=== PATIENT | male | born 1950 | race Caucasian/White ===

== ENCOUNTER 2023-02-21 06:24 | Inpatient (IN) ==
[2023-02-14 13:08] LABS: Basophils # (Auto) 0.05 K/mcL (0.00-0.30); Basophils % (Auto) 0.7 % (0.0-2.0); Eosinophils # (Auto) 0.16 K/mcL (0.00-0.70); Eosinophils % (Auto) 2.2 % (0.0-7.0); Hematocrit 42.1 % (40.1-51.0); Hemoglobin 13.5 g/dL (13.7-17.5); Lymphocytes # (Auto) 1.75 K/mcL (1.50-4.80); Lymphocytes % (Auto) 24.5 % (15.5-49.0); Mean Corpuscular HGB Conc 32.1 g/dL (31.0-36.0); Mean Platelet Volume 11.6 fL (8.8-12.5); Monocytes # (Auto) 0.67 K/mcL (0.10-0.90); Monocytes % (Auto) 9.4 % (1.0-12.0); Neutrophils % (Auto) 62.2 % (38.0-78.0); Platelet Count 181 K/mcL (140-440); RBC 4.43 M/mcL (4.63-6.08); Red Cell Distribution Width 13.2 % (11.5-14.5); WBC 7.1 K/mcL (4.5-11.0)
[2023-02-14 13:22] LABS: INR 1.1 (0.9-1.1); Partial Thromboplastin Time 26.8 sec (20.0-37.0); Prothrombin Time 14.5 sec (11.9-14.5)
[2023-02-14 13:24] LABS: Appearance,Urine HAZY (Clear); Bilirubin,Urine Negative (Negative); Color,Urine YELLOW; Culture Indicated,Urine No; Glucose,Urine (UA) Negative (Negative); Ketones,Urine Negative (Negative); Leukocyte Esterase,Urine Negative /uL (Negative); Mucus,Urine FEW /hpf; Nitrate,Urine Negative (Negative); Protein,Urine 30 mg/dL (Negative); Specific Gravity,Urine 1.021 (1.000-1.035); Urine Blood Negative (Negative); Urine RBC 0 /hpf (0-3); Urine Squamous Epithelial Cell 0 /hpf (0-4); Urine WBC 1 /hpf (0-4); Urobilinogen,Urine Negative
[2023-02-14 13:33] LABS: Blood Urea Nitrogen 16 mg/dL (8-23); Calcium 9.7 mg/dL (8.6-10.4); Carbon Dioxide 26 mmol/L (22-30); Chloride 104 mmol/L (96-108); Glomerular Filtration Rate 39; Glucose 114 mg/dL (70-105)
[2023-02-14 14:25] LABS: Estimated Average Glucose(eAG) 131 mg/dL; Hemoglobin A1C 6.2 % Hgb (4.0-6.0)
[~2023-02-21 06:24] MED LIST: 0.9 % SODIUM CHLORIDE 9 ML, KETOROLAC 30 MG, ROPIVACAINE HCL/PF 49.5 ML, EPINEPHrine 0.... IJ SCH; ACETAMINOPHEN 500 MG TABLET PO SCH; CELECOXIB 200 MG CAPSULE PO SCH; PREGABALIN 75 MG CAPSULE PO SCH; ceFAZolin 3 GM in DEXTROSE 5% IN WATER 50 ML IV SCH; oxyCODONE 10 MG TAB.ER.12H PO SCH
[2023-02-21] MEDS ORDERED: PROPOFOL 200 MG/20 ML VIAL IV ONE (07:01)
[2023-02-21] MEDS ORDERED: fentaNYL 100 MCG/2 ML VIAL IV ONE (07:01)
[2023-02-21] MEDS ORDERED: TRANEXAMIC ACID 1,000 MG/10 ML VIAL ONE (07:02)
[2023-02-21] MEDS ORDERED: ROCURONIUM 10 MG/ML ML IV ONE ×2 (07:34→12:13)
[2023-02-21] MEDS ORDERED: ONDANSETRON 4 MG/2 ML VIAL IV ONE (08:15)
[2023-02-21] MEDS ORDERED: HYDROmorphone 1 MG/ML SYRINGE ONE (08:49)
[2023-02-21] MEDS ORDERED: IPRATROPIUM/ALBUTEROL 3 ML AMPUL.NEB NEB PRN ×2 (09:14→09:15)
[2023-02-21] MEDS ORDERED: HYDROmorphone 0.5 MG/0.5 ML SYRINGE IV PRN (09:15)
[2023-02-21] MEDS ORDERED: LACTATED RINGERS 1,000 ML IV SCH (09:15)
[2023-02-21] MEDS ORDERED: ONDANSETRON 4 MG/2 ML VIAL IV PRN ×2 (09:15→10:05)
[2023-02-21] MEDS ORDERED: fentaNYL 100 MCG/2 ML VIAL IV PRN (09:15)
[2023-02-21] MEDS ORDERED: LIDOCAINE 2% PF 5 ML VIAL ONE (09:21)
[2023-02-21] MEDS ORDERED: ROPIVACAINE HCL/PF 30 ML VIAL IJ ONE (09:21)
[2023-02-21] MEDS ORDERED: DEXAMETHASONE 10 MG/ML VIAL ONE (09:21)
[2023-02-21] MEDS ORDERED: SUGAMMADEX SODIUM 200 MG/2 ML VIAL IV ONE (10:02)
[2023-02-21] MEDS ORDERED: FLEETS ADULT ENEMA PR PRN (10:05)
[2023-02-21] MEDS ORDERED: BENZOCAINE/MENTHOL 1 LOZENGE PO PRN (10:05)
[2023-02-21] MEDS ORDERED: POLYETHYLENE GLYCOL 3350 17 GM PACKET PO PRN (10:05)
[2023-02-21] MEDS ORDERED: TEMAZEPAM 15 MG CAPSULE PO PRN (10:05)
[2023-02-21] MEDS ORDERED: MAGNESIUM HYDROXIDE 30 ML ORAL.SUSP PO PRN (10:05)
[2023-02-21] MEDS ORDERED: TRANEXAMIC ACID 1,000 MG/10 ML VIAL IV ONE (10:05)
[2023-02-21] MEDS ORDERED: BISACODYL 10 MG SUPP.RECT PR PRN (10:05)
[2023-02-21] MEDS ORDERED: 0.45 % SODIUM CHLORIDE 1,000 ML IV SCH (10:15)
[2023-02-21] MEDS ORDERED: KETOCONAZOLE 2% TOP CRM 15GM TUBE TOPICAL PRN (11:28)
[2023-02-21] MEDS ORDERED: ePHEDrine 50 MG/5 ML SYRINGE (ANEST) IV ONE (11:37)
[2023-02-21] MEDS ORDERED: NOREPINEPHRINE BITARTRATE 8 MG in 0.9 % SODIUM CHLORIDE 242 ML IV SCH (11:45)
[2023-02-21] MEDS ORDERED: 0.9 % SODIUM CHLORIDE 250 ML IV SCH (11:45)
[2023-02-21] MEDS ORDERED: ACETAMINOPHEN 325 MG TABLET PO PRN (12:00)
[2023-02-21] MEDS: 0.9 % SODIUM CHLORIDE 1,000 ML IV SCH (13:00)
[2023-02-21] MEDS ORDERED: DEXTROSE 50% 50 ML VIAL IV PRN (13:13)
[2023-02-21] MEDS ORDERED: DEXTROSE 31 GM ORAL.SUSP PO PRN (13:13)
[2023-02-21 13:31] LABS: Basophils # (Auto) 0.03 K/mcL (0.00-0.30); Basophils % (Auto) 0.2 % (0.0-2.0); Eosinophils # (Auto) 0.01 K/mcL (0.00-0.70); Eosinophils % (Auto) 0.1 % (0.0-7.0); Hematocrit 39.6 % (40.1-51.0); Hemoglobin 12.3 g/dL (13.7-17.5); Lymphocytes % (Auto) 5.4 % (15.5-49.0); Mean Cell Volume 101.8 fL (80.0-100.0); Mean Corpuscular HGB Conc 31.1 g/dL (31.0-36.0); Mean Platelet Volume 10.7 fL (8.8-12.5); Monocytes # (Auto) 0.83 K/mcL (0.10-0.90); Neutrophils % (Auto) 88.9 % (38.0-78.0); Platelet Count 180 K/mcL (140-440); RBC 3.89 M/mcL (4.63-6.08); Red Cell Distribution Width 13.7 % (11.5-14.5); WBC 16.7 K/mcL (4.5-11.0)
[2023-02-21] MEDS: HYDROcodone/APAP 10/325MG TABLET PO PRN ×3 (13:44→20:57)
[2023-02-21] MEDS: HYDROmorphone 1 MG/ML SYRINGE IV PRN ×2 (13:45→20:58)
[2023-02-21] MEDS: 0.9 % SODIUM CHLORIDE 10 ML SYRINGE IV SCH ×2 (14:00→20:59)
[2023-02-21] MEDS: KETOROLAC 15 MG/ML VIAL IV SCH ×3 (14:01→23:58)
[2023-02-21 14:16] LABS: ALT/SGPT 14 U/L (<40); AST/SGOT 16 U/L (<40); Albumin 3.2 gm/dL (3.2-5.2); Albumin/Globulin Ratio 1.1 (1.0-2.3); Alkaline Phosphatase 106 U/L (39-117); Bilirubin,Total 0.5 mg/dL (0.1-1.0); Blood Urea Nitrogen 11 mg/dL (8-23); Calcium 8.8 mg/dL (8.6-10.4); Carbon Dioxide 22 mmol/L (22-30); Chloride 104 mmol/L (96-108); Globulin 2.9 gm/dL (2.2-3.7); Glomerular Filtration Rate 36; Glucose 189 mg/dL (70-105)
[2023-02-21] MEDS: ceFAZolin 1 GM VIAL IV SCH ×2 (15:55→23:57)
[2023-02-21] MEDS: INSULIN LISPRO 1 UNIT/0.01 ML UNIT SQ SCH ×2 (17:10→20:56)
[2023-02-21 17:16] LABS: Appearance,Urine CLEAR (Clear); Bilirubin,Urine Negative (Negative); Color,Urine YELLOW; Culture Indicated,Urine No; Glucose,Urine (UA) Negative (Negative); Ketones,Urine Negative (Negative); Leukocyte Esterase,Urine Negative /uL (Negative); Mucus,Urine FEW /hpf; Nitrate,Urine Negative (Negative); Protein,Urine 30 mg/dL (Negative); Specific Gravity,Urine 1.023 (1.000-1.035); Urine Blood Negative (Negative); Urine RBC < 1 /hpf (0-3); Urine Squamous Epithelial Cell 0 /hpf (0-4); Urine WBC 2 /hpf (0-4); Urobilinogen,Urine Negative
[2023-02-21] MEDS: ASPIRIN 81 MG TAB.CHEW PO SCH (20:56)
[2023-02-21] MEDS: DOCUSATE SODIUM 100 MG CAPSULE PO SCH (20:58)
[2023-02-21] MEDS ORDERED: SENNOSIDES 1 TABLET PO SCH (21:00)
[2023-02-22] MEDS: 0.9 % SODIUM CHLORIDE 1,000 ML IV SCH ×2 (05:53→12:15)
[2023-02-22] MEDS: KETOROLAC 15 MG/ML VIAL IV SCH ×3 (05:56→17:59)
[2023-02-22] MEDS: 0.9 % SODIUM CHLORIDE 10 ML SYRINGE IV SCH ×3 (05:57→21:17)
[2023-02-22] MEDS: INSULIN LISPRO 1 UNIT/0.01 ML UNIT SQ SCH ×4 (07:14→21:16)
[2023-02-22] MEDS: ASPIRIN 81 MG TAB.CHEW PO SCH ×2 (07:41→21:17)
[2023-02-22] MEDS: DOCUSATE SODIUM 100 MG CAPSULE PO SCH ×2 (07:41→21:17)
[2023-02-22] MEDS: CALCIUM (OYSTER SHELL) 500 MG TABLET PO SCH (08:58)
[2023-02-22] MEDS: VITAMIN D3 25 MCG TABLET PO SCH (08:58)
[2023-02-22] MEDS: DOXAZOSIN 4 MG TABLET PO SCH (08:59)
[2023-02-22] MEDS ORDERED: amLODIPine 10 MG TABLET PO SCH (09:00)
[2023-02-22] MEDS ORDERED: LISINOPRIL 20 MG TABLET PO SCH (09:00)
[2023-02-22] MEDS ORDERED: ATORVASTATIN 40 MG TABLET PO SCH (09:00)
[2023-02-22] MEDS ORDERED: MULTIVIT MIN FOLIC VIT K LYCOP PO SCH (09:00)
[2023-02-22] MEDS ORDERED: MAGNESIUM CITRATE 125 MG PO SCH (09:00)
[2023-02-22] MEDS ORDERED: AMLODIPINE BENAZEPRIL PO SCH (09:00)
[2023-02-22] MEDS ORDERED: HYDROcodone/APAP 10/325MG TABLET PO PRN (11:32)
[2023-02-22] MEDS ORDERED: FLEETS ADULT ENEMA PR PRN (11:32)
[2023-02-22] MEDS ORDERED: ACETAMINOPHEN 325 MG TABLET PO PRN (11:32)
[2023-02-22] MEDS ORDERED: BISACODYL 10 MG SUPP.RECT PR PRN (11:32)
[2023-02-22] MEDS ORDERED: ONDANSETRON 4 MG/2 ML VIAL IV PRN (11:32)
[2023-02-22] MEDS ORDERED: BENZOCAINE/MENTHOL 1 LOZENGE PO PRN (11:32)
[2023-02-22] MEDS ORDERED: MAGNESIUM HYDROXIDE 30 ML ORAL.SUSP PO PRN (11:32)
[2023-02-22] MEDS ORDERED: POLYETHYLENE GLYCOL 3350 17 GM PACKET PO PRN (11:32)
[2023-02-22] MEDS ORDERED: 0.45 % SODIUM CHLORIDE 1,000 ML IV SCH (11:45)
[2023-02-22] MEDS: HYDROcodone/APAP 10/325MG TABLET PO PRN ×2 (11:48→16:14)
[2023-02-22] MEDS ORDERED: KETOROLAC 15 MG/ML VIAL IV SCH (12:00)
[2023-02-22] MEDS ORDERED: DOCUSATE SODIUM 100 MG CAPSULE PO SCH (21:00)
[2023-02-22] MEDS: ATORVASTATIN 40 MG TABLET PO SCH (21:17)
[2023-02-22] MEDS: SENNOSIDES 1 TABLET PO SCH (21:17)
[2023-02-23] MEDS: KETOROLAC 15 MG/ML VIAL IV SCH ×2 (00:47→05:54)
[2023-02-23] MEDS: 0.9 % SODIUM CHLORIDE 10 ML SYRINGE IV SCH ×4 (05:55→22:23)
[2023-02-23] MEDS: INSULIN LISPRO 1 UNIT/0.01 ML UNIT SQ SCH ×4 (07:18→20:01)
[2023-02-23] MEDS: ASPIRIN 81 MG TAB.CHEW PO SCH ×2 (07:33→20:06)
[2023-02-23] MEDS: VITAMIN D3 25 MCG TABLET PO SCH (07:33)
[2023-02-23] MEDS: DOCUSATE SODIUM 100 MG CAPSULE PO SCH ×2 (07:33→20:06)
[2023-02-23] MEDS: DOXAZOSIN 4 MG TABLET PO SCH (07:33)
[2023-02-23] MEDS: CALCIUM (OYSTER SHELL) 500 MG TABLET PO SCH (07:33)
[2023-02-23] MEDS: HYDROcodone/APAP 10/325MG TABLET PO PRN (16:21)
[2023-02-23] MEDS: HYDROmorphone 1 MG/ML SYRINGE IV PRN (16:22)
[2023-02-23] MEDS: SENNOSIDES 1 TABLET PO SCH (20:06)
[2023-02-23] MEDS: ATORVASTATIN 40 MG TABLET PO SCH (20:06)
[2023-02-24] MEDS: 0.9 % SODIUM CHLORIDE 10 ML SYRINGE IV SCH (07:13)
[2023-02-24] MEDS: INSULIN LISPRO 1 UNIT/0.01 ML UNIT SQ SCH ×2 (07:14→12:00)
[2023-02-24] MEDS: DOCUSATE SODIUM 100 MG CAPSULE PO SCH (08:40)
[2023-02-24] MEDS: ASPIRIN 81 MG TAB.CHEW PO SCH (08:40)
[2023-02-24] MEDS: VITAMIN D3 25 MCG TABLET PO SCH (08:40)
[2023-02-24] MEDS: HYDROcodone/APAP 10/325MG TABLET PO PRN (08:41)
[2023-02-24] MEDS: DOXAZOSIN 4 MG TABLET PO SCH (08:42)
[2023-02-24] MEDS: CALCIUM (OYSTER SHELL) 500 MG TABLET PO SCH (08:42)
== END 2023-02-24 14:28 | DRG 470 ==
LOC: SUR 06:24 → ICU 13:00 → MEDSUR 02-23 15:55
PROVIDERS: ADMIT Orthopaedic Surgery; ATTEND Orthopaedic Surgery